=== PATIENT | male | born 1985 | race Caucasian/White ===

== ENCOUNTER 2017-03-12 13:57 | Emergency (ER) | payer BC | END 2017-03-12 15:30 | disposition home or self-care (01) | LOC: D.ER 13:57 | DX: S90.561A Insect bite (nonvenomous), right ankle, initial encounter (principal); S60.862A Insect bite (nonvenomous) of left wrist, initial encounter; W57.XXXA Bitten or stung by nonvenomous insect and other nonvenomous arthropods, initial encounter; Y93.89 Activity, other specified; Y92.029 Unspecified place in mobile home as the place of occurrence of the external cause ==

== ENCOUNTER 2017-03-13 09:17 | Emergency (ER) | payer BC | END 2017-03-13 11:21 | disposition home or self-care (01) | LOC: D.ER 09:17 | DX: S61.512A Laceration without foreign body of left wrist, initial encounter (principal); W26.9XXA Contact with unspecified sharp object(s), initial encounter; Y93.89 Activity, other specified; Y92.89 Other specified places as the place of occurrence of the external cause ==

== ENCOUNTER 2017-03-20 17:19 | Emergency (ER) | payer BC | END 2017-03-20 18:39 | disposition home or self-care (01) | LOC: D.ER 17:19 | DX: S61.512D Laceration without foreign body of left wrist, subsequent encounter (principal); X58.XXXD Exposure to other specified factors, subsequent encounter; Y92.89 Other specified places as the place of occurrence of the external cause; Z48.02 Encounter for removal of sutures ==